=== PATIENT | male | born 1965 | race Asian ===

== ENCOUNTER 2017-05-25 13:26 | Emergency (ER) | END 2017-05-25 15:57 | disposition home or self-care (01) ==

== ENCOUNTER 2019-01-25 10:38 | Observation (INO) | payer OTHER ==
[~2019-01-25] VITALS: Ht 180.3 cm; Wt 69.9 kg
[~2019-01-25 10:38] MED LIST: ADV25050 INHALATION; ALBU8.5H8 INH; AZIT250T13 PO; GUAI120S25 PO; HC2.5O30 TOP; MED4DP PO; PRED20TA PO
[2019-01-25] MEDS ORDERED: IPRATROPIUM (NEB) 0.5 MG/2.5 ML AMP NEB STA (11:29)
[2019-01-25] MEDS ORDERED: ALBUTEROL 0.083% (NEB) 2.5 MG/3 ML AMP NEB STA (11:29)
[2019-01-25] MEDS ORDERED: METHYLPREDNISOLONE 125 MG INJ IM STA (11:29)
[2019-01-25] MEDS ORDERED: ALBUTEROL 0.5% (NEB) 2.5 MG/0.5 ML AMP INH STA (13:16)
[2019-01-25] MEDS ORDERED: ACETAMINOPHEN 325 MG TAB PO PRN ×2 (17:00→22:00)
[2019-01-25] MEDS ORDERED: ONDANSETRON 4 MG INJ IV PRN (17:00)
[2019-01-25 19:57] VITALS: Ht 180.3 cm; Wt 69.9 kg
[2019-01-25 20:04] VITALS: BP 108/55; PULSE 87; RESP 20
[2019-01-25] MEDS ORDERED: ALBUTEROL/IPRATROPIUM (NEB) 3 ML AMP HHN SCH (21:00)
[2019-01-25] MEDS ORDERED: ONDANSETRON 4 MG TAB PO PRN (22:00)
[2019-01-25] MEDS ORDERED: NACL 0.9% 3 ML SYG IV SCH (22:00)
[2019-01-25] MEDS ORDERED: NON-FORMULARY/PATIENT OWN MED (Salmeterol Xinaf/Fluticasone* (Advair*) 1 INH) INHALATION SCH (22:00)
[2019-01-25] MEDS: HYDROCORTISONE 2.5% 28.35 GM OINT TOP SCH (22:00)
[2019-01-25] MEDS ORDERED: DOCUSATE SODIUM 100 MG CAP PO PRN (22:00)
[2019-01-26] MEDS: FAMOTIDINE 20 MG TAB PO SCH ×3 (00:01→21:13)
[2019-01-26 01:39] VITALS: BP 103/59; PULSE 65; RESP 18
[2019-01-26 08:00] VITALS: BP 110/66; PULSE 64; RESP 16
[2019-01-26] MEDS: ALBUTEROL/IPRATROPIUM (NEB) 3 ML AMP HHN SCH ×5 (08:00→20:18)
[2019-01-26] MEDS: HYDROCORTISONE 2.5% 28.35 GM OINT TOP SCH ×2 (09:00→21:00)
[2019-01-26] MEDS: METHYLPREDNISOLONE 40 MG INJ IV SCH (09:01)
[2019-01-26] MEDS: ENOXAPARIN 40 MG/0.4 ML SYG SC SCH (09:02)
[2019-01-26 14:00] VITALS: BP 130/77; PULSE 86; RESP 18
[2019-01-26] MEDS: FLUTICASONE/VILANTEROL 100-25 INH SCH (16:18)
[2019-01-26] MEDS: AZITHROMYCIN 250 MG TAB PO SCH (17:41)
[2019-01-26 19:40] VITALS: BP 131/88; PULSE 74; RESP 20
[2019-01-27 02:05] VITALS: BP 98/63; PULSE 65; RESP 18
[2019-01-27 07:55] VITALS: BP 98/53; PULSE 69; RESP 18
[2019-01-27 08:01] VITALS: BP 125/73; PULSE 52; RESP 18
[2019-01-27] MEDS: HYDROCORTISONE 2.5% 28.35 GM OINT TOP SCH (09:00)
[2019-01-27] MEDS: ALBUTEROL/IPRATROPIUM (NEB) 3 ML AMP HHN SCH (09:11)
[2019-01-27] MEDS: FAMOTIDINE 20 MG TAB PO SCH (09:13)
[2019-01-27] MEDS: AZITHROMYCIN 250 MG TAB PO SCH (09:13)
[2019-01-27] MEDS: METHYLPREDNISOLONE 40 MG INJ IV SCH (09:13)
[2019-01-27] MEDS: FLUTICASONE/VILANTEROL 100-25 INH SCH (09:14)
[2019-01-27] MEDS: ENOXAPARIN 40 MG/0.4 ML SYG SC SCH (09:15)
== END 2019-01-27 13:10 | disposition home or self-care (01) ==
LOC: FTE 10:38 → INTOOBSV 17:00 → PP2 17:00
PROVIDERS: ADMIT Internal Medicine; ATTEND Internal Medicine
DX: J45.901 Unspecified asthma with (acute) exacerbation (principal)
CPT/HCPCS: 71046; 80048; 82550; 82553; 83036; 84443; 84484; 85025; 85378; 93005; 94640; 94664; 96372; 99217; G0378; J1650; J2920; J2930